=== PATIENT | male | born 1985 | race Caucasian/White ===

== ENCOUNTER 2019-01-02 05:55 | Emergency (ER) | payer SELFPAY ==
[~2019-01-02] VITALS: Ht 180.3 cm; Wt 77.1 kg
[2019-01-02] MEDS ORDERED: Morphine Sulfate 4mg/ml Inj (IV USE ONLY) IVP ONE (06:00)
[2019-01-02] MEDS ORDERED: Ketorolac 30mg Inj IV ONE (06:00)
--- NOTE | 2019-01-02 06:06 | Emergency Room Report ---
History of Present Illness General Chief Complaint: Pain Source: Patient Present Illness HPI 33-year-old male with sudden onset of right lower quadrant pain feels like a squeezing pain severe, just prior to arrival, no dysuria no fever no chills, no right flank pain, patient unable to give a proper history secondary to the pain , he endorses some nausea no chest pain no shortness of breath, patient denies history of kidney stones. Allergies: Coded Allergies: No Known Allergies (Unverified , 01/02/19) Patient History Limited by: medical condition - Patient in pain Past Medical History: see triage record Reviewed Nursing Documentation: PMH: Agreed; PSxH: Agreed Nursing Documentation-PMH Past Medical History: No History, Except For Hx Gastrointestinal Problems: Yes - ACID REFLUX Review of Systems All Other Systems: negative except mentioned in HPI Physical Exam Sp02 EP Interpretation: reviewed, normal General Appearance: alert, moderate distress Head: normocephalic, atraumatic Eyes: bilateral eye PERRL, bilateral eye EOMI ENT: uvula midline, moist mucus membranes Neck: supple, thyroid normal, supple/symm/no masses Respiratory: lungs clear, no respiratory distress, no retraction, no accessory muscle use Cardiovascular #1: normal peripheral pulses, regular rate, rhythm, no edema, no gallop, no murmur Gastrointestinal: non tender, soft, no guarding, no rebound Genitourinary: other - [employer] Jocelyn YOUNG, bilateral cremasteric reflex intact , scrotum, unremarkable,no ttp Musculoskeletal: normal inspection Neurologic: alert, oriented x3 Psychiatric: mood/affect normal Skin: no rash, warm/dry Medical Decision Making Diagnostic Impression: Primary Impression: Ureter colic Additional Impression: Ureterolithiasis ER Course 33-year-old male presents with sudden onset right lower quadrant pain on the differential includes kidney stone, appendicitis, diverticulitis. Medications given, patient is medically complex, morphine given, normal saline Pain controlled, Cures report ran Patient may have passed stone Dispo home w/ return precautions Laboratory Tests Test 01/02/19 06:00 White Blood Count 9.9 K/UL (4.8-10.8) Red Blood Count 4.95 M/UL (4.70-6.10) Hemoglobin 15.9 G/DL (14.2-18.0) Hematocrit 44.8 % (42.0-52.0) Mean Corpuscular Volume 91 FL (80-99) Mean Corpuscular Hemoglobin 32.1 PG (27.0-31.0) H Mean Corpuscular Hemoglobin Concent 35.4 G/DL (32.0-36.0) Red Cell Distribution Width 10.5 % (11.6-14.8) L Platelet Count 252 K/UL (150-450) Mean Platelet Volume 6.5 FL (6.5-10.1) Neutrophils (%) (Auto) 66.5 % (45.0-75.0) Lymphocytes (%) (Auto) 24.0 % (20.0-45.0) Monocytes (%) (Auto) 8.6 % (1.0-10.0) Eosinophils (%) (Auto) 0.4 % (0.0-3.0) Basophils (%) (Auto) 0.5 % (0.0-2.0) Urine Color Yellow Urine Appearance Clear Urine pH 6 (4.5-8.0) Urine Specific [place] 1.015 (1.005-1.035) Urine Protein Negative (NEGATIVE) Urine Glucose (UA) Negative (NEGATIVE) Urine Ketones 1+ (NEGATIVE) H Urine Blood Negative (NEGATIVE) Urine Nitrite Negative (NEGATIVE) Urine Bilirubin Negative (NEGATIVE) Urine Urobilinogen 4 MG/DL (0.0-1.0) H Urine Leukocyte Esterase 1+ (NEGATIVE) H Urine RBC 0 /HPF (0 - 0) Urine WBC 0-2 /HPF (0 - 0) Urine Squamous Epithelial Cells Occasional /LPF Urine Bacteria Occasional /HPF (NONE) Urine Mucus Few /LPF (NONE/OCC) H Sodium Level 140 MMOL/L (136-145) Potassium Level 3.6 MMOL/L (3.5-5.1) Chloride Level 101 MMOL/L (98-107) Carbon Dioxide Level 32 MMOL/L (21-32) Anion Gap 8 mmol/L (5-15) Blood Urea Nitrogen 16 mg/dL (7-18) Creatinine 1.0 MG/DL (0.55-1.30) Estimate Glomerular Filtration Rate > 60 mL/min (>60) Glucose Level 119 MG/DL (74-106) H Calcium Level 9.0 MG/DL (8.5-10.1) Total Bilirubin 0.4 MG/DL (0.2-1.0) Aspartate Amino Transferase (AST) 27 U/L (15-37) Alanine Aminotransferase (ALT) 34 U/L (12-78) Alkaline Phosphatase 83 U/L (46-116) Total Protein 7.4 G/DL (6.4-8.2) Albumin 4.1 G/DL (3.4-5.0) Globulin 3.3 g/dL Albumin/Globulin Ratio 1.2 (1.0-2.7) Lipase 272 U/L (73-393) Urine Opiates Screen Positive (NEGATIVE) H Urine Barbiturates Screen Negative (NEGATIVE) Phencyclidine (PCP) Screen Negative (NEGATIVE) Urine Amphetamines Screen Positive (NEGATIVE) H Urine Benzodiazepines Screen Negative (NEGATIVE) Urine Cocaine Screen Negative (NEGATIVE) Urine Marijuana (THC) Screen Negative (NEGATIVE) EKG Diagnostic Results Rate: other Rhythm Strip Diag. Results Rhythm Strip Time: 08:09 EP Interpretation: yes Rate: 62 Rhythm: NSR, no PVC's, no ectopy CT/MRI/US Diagnostic Results CT/MRI/US Diagnostic Results : Impression EXAM: CT Abdomen and Pelvis Without Intravenous Contrast CLINICAL HISTORY: PAIN TECHNIQUE: Axial computed tomography images of the abdomen and pelvis without intravenous contrast. CTDI is 13.70 mGy and DLP is 744 mGy-cm. One or more of the following dose reduction techniques were used: automated exposure control, adjustment of the mA and/or kV according to patient size, use of iterative reconstruction technique. COMPARISON: No prior FINDINGS: Lung bases: Mild atelectasis/airspace disease in the lateral right lung base. Mediastinum: Small hiatal hernia. ABDOMEN: Liver: Focal low density in the left hepatic lobe along the fissure, likely focal fat and pseudomass. Gallbladder and bile ducts: Unremarkable. No calcified stones. No ductal dilation. Pancreas: Unremarkable. No ductal dilation. Spleen: Unremarkable. No splenomegaly. Adrenals: Unremarkable. No mass. Kidneys and ureters: No renal calcification. No hydronephrosis. Stomach and bowel: Moderate retained stool. Scattered air-fluid levels and proximal small bowel loops, nonspecific. This may reflect focal ileus/ enteritis. No obstruction. PELVIS: Appendix: Normal appendix. Bladder: Thickening of the bladder wall likely due to under distention. Recommend clinical correlation and follow-up to exclude developing cystitis. No stones. Reproductive: Unremarkable as visualized. ABDOMEN and PELVIS: Intraperitoneal space: No free air. No significant fluid collection. Bones/joints: No acute fracture. No dislocation. Soft tissues: Unremarkable. Vasculature: Unremarkable. No abdominal aortic aneurysm. Lymph nodes: Small retroperitoneal lymph nodes, nonspecific. IMPRESSION: 1. No renal or ureteral calculus. 2. Thickening of the bladder wall which may reflect under distention. Recommend clinical correlation and follow-up to exclude developing cystitis. 3. Nonspecific bowel gas pattern with findings which may reflect focal ileus/ enteritis. 4. No free fluid or free air Radiologist: Ada Valencia M.D. Electronically Signed: 01/02/19 08:01 Study ready at 07:13 and initial results transmitted at 08:01 Disposition: HOME, SELF-CARE Condition: Stable Scripts Cephalexin* (CEPHALEXIN*) 500 Mg Tablet 500 MG ORAL EVERY 6 HOURS, #28 CAP Prov: Eric Guo MD 01/02/19 Hydrocodone Bit/Acetaminophen 5-325* (NORCO 5-325*) 1 Each Tablet 1 TAB ORAL Q6H PRN for For Pain, #12 TAB 0 Refills Prov: Eric Guo MD 01/02/19 Naproxen* (NAPROSYN*) 250 Mg Tablet 250 MG ORAL BID PRN for For Pain, #20 TAB 0 Refills Prov: Eric Guo MD 01/02/19 Famotidine (PEPCID AC) 20 Mg Tablet 20 MG PO BID, #60 TAB Prov: Eric Guo MD 01/02/19 Referrals: [facility] Yandel Maradiaga [facility] Patient Instructions: Abdominal Pain, Adult, [id number], Kidney Stones, Easy- to-Read Additional Instructions: The patient was provided with discharge instructions, notified to follow-up with a primary care doctor and or specialist in the next 24-48 hours, and to return to the ED if they have worsening of their symptoms. Please note that this report is being documented using zintin technology. This can lead to erroneous entry secondary to incorrect interpretation by the dictating instrument. Please follow-up with urology in 24-48hours Eric Guo MD Jan 02, 2019 06:06
[2019-01-02] MEDS ORDERED: Hydromorphone 0.5mg/0.5ml inj IVP ONE ×2 (06:15)
[2019-01-02 06:39] VITALS: BP 149/93
--- NOTE | 2019-01-02 06:41 | NUR ---
ED Nurse Note: Patient walked in to ER from home c/o severe right flank pain 10/10. Patient presented diaphoretic, anxious, screaming out loud. AAO x4, VSS at this time, skn is warm to touch.
--- NOTE | 2019-01-02 06:45 | NUR ---
ED Nurse Note: urine and blood collected and sent down
[2019-01-02 06:58] LABS: BASOPHILS % (AUTO) 0.5 % (0.0-2.0); EOSINOPHILS % (AUTO) 0.4 % (0.0-3.0); HEMATOCRIT 44.8 % (42.0-52.0); HEMOGLOBIN 15.9 G/DL (14.2-18.0); MEAN CORPUSCULAR VOLUME 91 FL (80-99); MONOCYTES % (AUTO) 8.6 % (1.0-10.0); NEUTROPHILS % (AUTO) 66.5 % (45.0-75.0); PLATELET COUNT 252 K/UL (150-450); RED BLOOD COUNT 4.95 M/UL (4.70-6.10); RED CELL DISTRIBUTION WIDTH 10.5 % (11.6-14.8); WHITE BLOOD COUNT 9.9 K/UL (4.8-10.8)
--- NOTE | 2019-01-02 07:00 | NUR ---
ED Nurse Note: Patient went down for CT
[2019-01-02 07:01] LABS: ANION GAP 8 mmol/L (5-15); BLOOD UREA NITROGEN 16 mg/dL (7-18); CARBON DIOXIDE 32 MMOL/L (21-32); CHLORIDE 101 MMOL/L (98-107); POTASSIUM 3.6 MMOL/L (3.5-5.1); SODIUM 140 MMOL/L (136-145)
[2019-01-02 07:04] LABS: APPEARANCE,URINE CLEAR; BILIRUBIN, URINE NEGATIVE (NEGATIVE); GLUCOSE, URINE (UA) NEGATIVE (NEGATIVE); KETONES,URINE 1+ (NEGATIVE); LEUKOCYTE ESTERASE ,URINE 1+ (NEGATIVE); NITRITE,URINE NEGATIVE (NEGATIVE); PH,URINE 6 (4.5-8.0); PROTEIN,URINE NEGATIVE (NEGATIVE); UROBILINOGEN,URINE 4 MG/DL (0.0-1.0)
[2019-01-02 07:05] LABS: ALANINE AMINOTRANSFERASE 34 U/L (12-78); ALBUMIN 4.1 G/DL (3.4-5.0); ALBUMIN/GLOBULIN RATIO 1.2 (1.0-2.7); ALKALINE PHOSPHATASE 83 U/L (46-116); ASPARTATE AMINO TRANSFERASE 27 U/L (15-37); BILIRUBIN,TOTAL 0.4 MG/DL (0.2-1.0)
--- NOTE | 2019-01-02 07:08 | NUR ---
HAND-OFF: Report given to HECTOR Tim.
[2019-01-02 07:21] LABS: COLOR,URINE YELLOW
[2019-01-02 07:30] VITALS: BP 137/85
--- NOTE | 2019-01-02 08:02 | Diagnostic Imaging Report ---
EXAM: CT Abdomen and Pelvis Without Intravenous Contrast CLINICAL HISTORY: PAIN TECHNIQUE: Axial computed tomography images of the abdomen and pelvis without intravenous contrast. CTDI is 13.70 mGy and DLP is 744 mGy-cm. One or more of the following dose reduction techniques were used: automated exposure control, adjustment of the mA and/or kV according to patient size, use of iterative reconstruction technique. COMPARISON: No prior FINDINGS: Lung bases: Mild atelectasis/airspace disease in the lateral right lung base. Mediastinum: Small hiatal hernia. ABDOMEN: Liver: Focal low density in the left hepatic lobe along the fissure, likely focal fat and pseudomass. Gallbladder and bile ducts: Unremarkable. No calcified stones. No ductal dilation. Pancreas: Unremarkable. No ductal dilation. Spleen: Unremarkable. No splenomegaly. Adrenals: Unremarkable. No mass. Kidneys and ureters: No renal calcification. No hydronephrosis. Stomach and bowel: Moderate retained stool. Scattered air-fluid levels and proximal small bowel loops, nonspecific. This may reflect focal ileus/enteritis. No obstruction. PELVIS: Appendix: Normal appendix. Bladder: Thickening of the bladder wall likely due to under distention. Recommend clinical correlation and follow-up to exclude developing cystitis. No stones. Reproductive: Unremarkable as visualized. ABDOMEN and PELVIS: Intraperitoneal space: No free air. No significant fluid collection. Bones/joints: No acute fracture. No dislocation. Soft tissues: Unremarkable. Vasculature: Unremarkable. No abdominal aortic aneurysm. Lymph nodes: Small retroperitoneal lymph nodes, nonspecific. IMPRESSION: 1. No renal or ureteral calculus. 2. Thickening of the bladder wall which may reflect under distention. Recommend clinical correlation and follow-up to exclude developing cystitis. 3. Nonspecific bowel gas pattern with findings which may reflect focal ileus/enteritis. 4. No free fluid or free air <MYCVCSECTION> [employer] 01/02/19 08:21 Call From [facility] Dr Guo
[2019-01-02] MEDS ORDERED: PEPCID AC20 M2 PO (08:07)
[2019-01-02] MEDS ORDERED: NAPROXEN250 MG ORAL (08:08)
[2019-01-02] MEDS ORDERED: NORCO 5-325 TA1 EACH ORAL (08:20)
[2019-01-02] MEDS ORDERED: CEPHALEXIN500 M1 ORAL (08:21)
[2019-01-02 08:38] VITALS: BP 118/70
--- NOTE | 2019-01-02 08:38 | NUR ---
ER DISCHARGE NOTE: Patient is cleared to be discharged per ERMD, pt is aox4, on room air, with stable vital signs. pt was given dc and prescription instructions, pt was able to verbalize understanding, pt id band and iv site removed without complications. pt is able to ambulate with steady gait. pt took all belongings and left with his girl friend.
== END 2019-01-02 08:38 | disposition home or self-care (01) ==
LOC: EMR 07:36
DX: N20.1 Calculus of ureter (principal); K21.9 Gastro-esophageal reflux disease without esophagitis
CPT/HCPCS: 36415; 74176; 80053; 80307; 81003; 83690; 85025; 96361; 96374; 96375; 99284; J1170; J1885; J2270; J2405; S0028